=== PATIENT | male | born 1985 | race Hispanic/Latino ===

== ENCOUNTER 2022-11-16 20:43 | Emergency (ER) | payer OTHER ==
[~2022-11-16] VITALS: Ht 172.7 cm; Wt 77.1 kg
[2022-11-16] MEDS ORDERED: FLUORESCEIN SOD(OPTH) 1 MG STRP OP ONE (21:00)
[2022-11-16] MEDS ORDERED: TETRACAINE HCL 0.5% OPTH SOLN 4 ML BTL OP ONE (21:00)
[2022-11-16 21:09] VITALS: BP 145/90; PULSE 95; RESP 16; TEMP 98.2; O2SAT 100
== END 2022-11-16 21:08 | disposition home or self-care (01) ==
LOC: ER 20:53
DX: H10.211 Acute toxic conjunctivitis, right eye (principal)
CPT/HCPCS: 99282